=== PATIENT | male | born 1980 | race Caucasian/White ===

== ENCOUNTER 2022-02-05 13:08 | Emergency (ER) | payer MEDICAID ==
[~2022-02-05] VITALS: Ht 190.5 cm; Wt 90.7 kg
[2022-02-05] MEDS: IV NS 0.9% 1,000 ML BAG IV ONE (15:24)
--- NOTE | 2022-02-05 15:25 | NUR ---
IV LINE ESTABLISHED ON LAC #18, BLOOD DRAWN AND COLLECTED BY PHLEB AT BEDSIDE
[2022-02-05 15:34] LABS: BASOPHILS # (AUTO) 0.1 K/uL (0.0-0.2); BASOPHILS % (AUTO) 0.6 % (0.0-2.0); EOSINOPHILS % (AUTO) 0.4 % (0.0-6.0); HEMATOCRIT 48 % (39-51); HEMOGLOBIN 15.5 g/dL (13.5-17.5); LYMPHOCYTES # (AUTO) 1.7 K/uL (0.8-4.8); LYMPHOCYTES % (AUTO) 11.7 % (20.0-44.0); MEAN CORPUSCULAR HGB CONC 33 g/dl (31.0-36.0); MEAN CORPUSCULAR VOLUME 87 fL (80-96); MONOCYTES # (AUTO) 1.1 K/uL (0.1-1.30); MONOCYTES % (AUTO) 7.4 % (2.0-12.0); NEUTROPHILS # (AUTO) 11.4 K/uL (1.8-8.9); NEUTROPHILS % (AUTO) 79.9 % (43.0-81.0); PLATELET COUNT (AUTO) 336 K/uL (150-450); WHITE BLOOD COUNT (AUTO) 14.2 K/uL (4.3-11.0)
[2022-02-05] MEDS ORDERED: CT SWABBABLE VALVE TRANS SET 1 EA INFUS.SET MC ONE (15:39)
[2022-02-05] MEDS ORDERED: IOHEXOL-300 100 ML VIAL IV ONE (15:39)
[2022-02-05] MEDS ORDERED: IV NS 0.9% 250 ML IV ONE (15:40)
--- NOTE | 2022-02-05 15:40 | NUR ---
PT TAKEN TO RADIOLOGY FOR CT
--- NOTE | 2022-02-05 16:00 | NUR ---
pt returned from radiology
[2022-02-05 16:16] LABS: ALBUMIN 3.6 g/dL (3.4-5.0); BILIRUBIN,DIRECT 0.2 mg/dL (0.0-0.2); BILIRUBIN,TOTAL 0.7 mg/dL (0.2-1.0); CALCIUM, SERUM 9.1 mg/dL (8.5-10.1); CREATININE 1.1 mg/dL (0.6-1.3); POTASSIUM 3.8 mmol/L (3.5-5.1); TOTAL PROTEIN, SERUM 8.2 g/dL (6.4-8.2)
--- NOTE | 2022-02-05 17:05 | NUR ---
IV removed. Catheter intact and site benign. Pressure and 4x4 applied to site. No bleeding noted.
[2022-02-05 17:06] VITALS: BP 142/89
--- NOTE | 2022-02-05 17:06 | NUR ---
Patient discharged to home in stable condition. Written and verbal after care instructions given. Patient verbalizes understanding of instruction.
== END 2022-02-05 17:07 | disposition home or self-care (01) ==
LOC: ER 13:08
DX: K63.89 Other specified diseases of intestine (principal); R10.31 Right lower quadrant pain
CPT/HCPCS: 99285; 74177; 96360; 85025; 80048; 83690; 80076; 36415; J7030; J7050; Q9967